=== PATIENT | female | born 1935 | race Caucasian/White ===

== ENCOUNTER 2017-06-13 10:30 | Day surgery (SDC) | payer MEDICARE, OTHER ==
[2017-06-12 13:59] VITALS: BMI 24.2
[~2017-06-13] VITALS: Ht 162.6 cm; Wt 164.0 kg
[2017-06-13] VITALS (9 sets, daily range): BP systolic 128–156; BP diastolic 59–79; PULSE 75–88; RESP 16–29; Ht 162.6 cm; Wt 164.0 kg
--- NOTE | 2017-06-13 04:58 | PREOPHP ---
DATE OF ADMISSION: 06/13/2017 HISTORY OF PRESENT ILLNESS: This 82-year-old patient is admitted for elective cataract surgery of the right eye. The patient has had progressive deterioration in both eyes over the last 1-2 years without prior history of eye disease or injury. PAST MEDICAL HISTORY: The patient does have a history of acute respiratory failure and COPD as well as diabetes mellitus, systemic hypertension with secondary renal disease. MEDICATIONS: Includes Coreg, Synthroid and albuterol. Patient is also on Lexapro and Lasix. ALLERGIES: CIPROFLOXACIN AND PENICILLIN. PHYSICAL EXAMINATION: EYES: On examination, the visual acuity is finger counting in the right eye and 20/100 in the left eye. Slit lamp examination reveals dense posterior subcapsular cataract in the right eye and moderately dense posterior subcapsular cataract in the left eye. Applanation tonometry 16 mmHg in each eye. Examination of the retina is grossly within normal limits, but details are limited due to the advanced cataract. DIAGNOSIS: Cataract right eye. PLAN: Cataract extraction with lens implant, right eye. The risks and alternatives of the surgery have been discussed with the patient as well as the potential for improvement of visual acuity leading to greater ability to perform activities of daily living. The patient understands this and agrees to proceed with surgery. Dictated By: Elias Acevedo MD /[email or web address]/kishore /Document#: [id number]
[~2017-06-13 10:30] MED LIST: BALANCED SALT SOLN 500 ML OPH IRRIG ONE; CYCLOPENTOLATE/PHENYLEPH 2 ML OPH OPER SCH; DICLOFENAC 0.1% 2.5 ML OPH OPER SCH; TOBRAMYCIN 0.3% 5 ML OPH RIGHT EYE SCH; TROPICAMIDE 1% 2 ML OPH OPER SCH
[2017-06-13] MEDS ORDERED: DEXAMETHASONE 4 MG/ML 1 ML INJ ONE (11:17)
[2017-06-13] MEDS ORDERED: CARBACHOL 0.01% 1.5 ML OPH INJ ONE (11:17)
[2017-06-13] MEDS ORDERED: GENTAMICIN 80 MG INJ ONE (11:17)
[2017-06-13] MEDS ORDERED: LIDOCAINE 4% (MPF) 5 ML INJ ONE (11:17)
[2017-06-13] MEDS ORDERED: EPINEPHrine 1 MG INJ ONE (11:18)
[2017-06-13] MEDS ORDERED: CEFAZOLIN 1 GM INJ ONE (11:18)
[2017-06-13] MEDS ORDERED: METOCLOPRAMIDE 10 MG INJ IV PRN (11:30)
[2017-06-13] MEDS ORDERED: FENTAnyl 50 MCG/ML VIAL IV PRN (11:30)
[2017-06-13] MEDS ORDERED: MEPERIDINE 25 MG INJ IV PRN (11:30)
[2017-06-13] MEDS ORDERED: DIPHENHYDRAMINE 50 MG INJ IV PRN (11:30)
[2017-06-13] MEDS ORDERED: ONDANSETRON 4 MG INJ IV PRN (11:30)
[2017-06-13] MEDS ORDERED: LORA1TAB PO (11:58)
[2017-06-13] MEDS ORDERED: CARV3.12 PO (11:59)
[2017-06-13] MEDS ORDERED: DOCU-144 PO (11:59)
[2017-06-13] MEDS ORDERED: CRAN450C PO (11:59)
[2017-06-13] MEDS ORDERED: BISA10SU55 RC (12:00)
[2017-06-13] MEDS ORDERED: SYN75 PO (12:01)
[2017-06-13] MEDS ORDERED: SENN-53 PO (12:01)
[2017-06-13] MEDS ORDERED: ACET-2047 PO (12:02)
[2017-06-13] MEDS ORDERED: HYALURONATE/CHONDROITIN 1ML OPH INJ IO ONE (12:10)
[2017-06-13] MEDS ORDERED: CARBACHOL 0.01% 1.5 ML OPH INJ IO ONE (12:10)
[2017-06-13] MEDS ORDERED: GENTAMICIN 80 MG INJ INJ ONE (12:10)
[2017-06-13] MEDS ORDERED: DEXAMETHASONE 4 MG/ML 1 ML INJ INJ ONE (12:10)
[2017-06-13] MEDS ORDERED: LIDOCAINE 2% (SDV) 5 ML INJ ONE (12:59)
[2017-06-13] MEDS ORDERED: PROPOFOL 20 ML ONE (12:59)
[2017-06-13] MEDS ORDERED: HYALURONATE/CHONDROITIN 1ML OPH INJ ZFS ONE (14:00)
--- NOTE | 2017-06-21 06:51 | OPR ---
DATE OF OPERATION: 06/13/2017 PREOPERATIVE DIAGNOSIS: Mature cataract, right eye. POSTOPERATIVE DIAGNOSIS: Mature cataract, right eye. OPERATION PERFORMED: Cataract extraction with lens implant, right eye. SURGEON: Elias Acevedo MD DOCUMENTATION LEAD: ANESTHESIA: Local standby. ANESTHESIOLOGIST: Nick Mejia MD OPERATION: Phacoemulsification with posterior chamber intraocular lens implant, right eye. PROCEDURE: The patient was brought to the operating room and placed on the table with an IV in place and the patient attached to an post office manager. Oxygen was given via face mask. After some intravenous sedation was administered, local anesthesia was given using Xylocaine 2% with epinephrine, mixed with Marcaine 0.5%. This was given in a lid block and retrobulbar injection. The patient was then prepped and draped in the usual sterile manner. A wire lid speculum was inserted between the lids of the right eye. A Superblade was used to enter the anterior chamber at the corneoscleral limbus at the 10:30 o'clock position. A separate incision was made using a 3.0-mm keratome which entered the corneoscleral junction at the 12 o'clock position. Through this 3- mm opening, an irrigating cystotome was introduced into the anterior chamber. The chamber was filled with Viscoat and an anterior capsulotomy was performed. Balanced salt solution was then used for hydrodissection of the lens. A phacoemulsification handpiece was then brought into the field and introduced into the anterior chamber. The lens nucleus was emulsified using a deep groove and cracking the nucleus into quadrants. Following this, each quadrant was aspirated and emulsified at the pupillary margin. Because of the mature cataract and the hard fragments of lens nucleus during the phacoemulsification, there was a break in the posterior capsule, however, no formed vitreous presented in the anterior chamber or at the lips of the wound, therefore it was decided to proceed with cataract surgery with lens implant After this was completed, the irrigation/aspiration handpiece was brought to the field, introduced into the posterior chamber, and the lens cortical material was removed. When this was completed, additional Viscoat was injected into the anterior and posterior chambers. The 3-mm opening had its internal lips enlarged, and then the posterior chamber intraocular lens measuring 19.5 diopters posterior chamber intraocular lens (Bausch and Lomb model LI61AO) was then injected into the posterior chamber using the lens injector system. After the leading haptic was introduced into the capsular bag and the lens optic was present in the center of the eye, the injector was removed and the trailing haptic was grasped with non-toothed forceps and introduced into the capsular fold superiorly. A Sinskey hook was then used to rotate the intraocular lens so that the lips were oriented in the horizontal meridian. One 10-0 nylon suture was placed across the wound. Prior to tying, the irrigation/aspiration handpiece was reintroduced into the anterior chamber to remove the Viscoat. Miochol was instilled to constrict the pupil, and then the 10-0 nylon suture was tied. The ends were cut short and then the knot was buried. Then, 0.5 mL of dexamethasone and 0.5 mL of Ancef were injected into the sub-Tenon space in the inferior fornix. Ciloxan drops were then placed on the surface of the eye. The speculum was removed and a patch was applied. The patient then left the operating room in satisfactory condition. Dictated By: Elias Acevedo MD /renea/maria r /Document#: [id number]
== END 2017-06-13 15:20 | disposition home or self-care (01) ==
LOC: SDS 10:30
PROVIDERS: ATTEND Ophthalmology
DX: H25.041 Posterior subcapsular polar age-related cataract, right eye (principal); J44.9 Chronic obstructive pulmonary disease, unspecified; I12.9 Hypertensive chronic kidney disease with stage 1 through stage 4 chronic kidney disease, or unspecified chronic kidney disease; N18.9 Chronic kidney disease, unspecified; E11.9 Type 2 diabetes mellitus without complications; Z88.0 Allergy status to penicillin; E03.9 Hypothyroidism, unspecified
CPT/HCPCS: 66984; J0171; J0690; J1100; J1580; V2632

== ENCOUNTER 2017-07-18 05:53 | Day surgery (SDC) | payer MEDICARE, OTHER ==
--- NOTE | 2017-07-17 16:52 | PREOPHP ---
DATE OF ADMISSION: 07/18/2017 HISTORY OF PRESENT ILLNESS: This 82-year-old patient has had decrease of vision in both eyes over the past 1 to 2 years and 1 month ago underwent cataract surgery of the right eye with good visual result. The patient denies prior history of eye disease or injury. PAST MEDICAL HISTORY: The patient's systemic history is positive for a history of acute respiratory failure and COPD, as well as diabetes mellitus, systemic hypertension, and secondary renal disease. CURRENT MEDICATIONS: Coreg, Synthroid, albuterol, Lexapro, and Lasix. ALLERGIES: CIPROFLOXACIN AND PENICILLIN. PHYSICAL EXAMINATION: HEENT: The visual acuity without correction is 20/80 in the right eye and 2100 in the left eye. Slit lamp reveals posterior chamber intraocular lens in appropriate position in the right eye and a posterior subcapsular cataract in the left eye. Applanation tonometry is 18 mmHg. Examination of the retina appears within normal limits. DIAGNOSIS: Cataract left eye. PLAN: Cataract extraction with lens implant left eye. The risks and alternatives for the patient's cataract have been discussed with the patient and patient is eager to proceed with surgery in hopes of achieving better visual acuity leading to greater ability to perform activities of daily living. Dictated By: Elias Acevedo MD /renea/berta /Document#: [id number]
[2017-07-18] VITALS (7 sets, daily range): BP systolic 115–141; BP diastolic 57–85; PULSE 78–86; RESP 18–25; Ht 162.6 cm; Wt 65.0 kg
[~2017-07-18] VITALS: Ht 162.6 cm; Wt 65.0 kg
[~2017-07-18 05:53] MED LIST changes: +ACET-2047 PO; -BALANCED SALT SOLN 500 ML OPH IRRIG ONE; +BISA10SU55 RC; +CARV3.12 PO; +CRAN450C PO; -CYCLOPENTOLATE/PHENYLEPH 2 ML OPH OPER SCH; -DICLOFENAC 0.1% 2.5 ML OPH OPER SCH; +DOCU-144 PO; +LORA1TAB PO; +SENN-53 PO; +SYN75 PO; -TOBRAMYCIN 0.3% 5 ML OPH RIGHT EYE SCH; -TROPICAMIDE 1% 2 ML OPH OPER SCH
[2017-07-18] MEDS ORDERED: EPINEPHrine 1 MG INJ ONE (06:24)
[2017-07-18] MEDS ORDERED: CARBACHOL 0.01% 1.5 ML OPH INJ ONE (06:24)
[2017-07-18] MEDS ORDERED: DEXAMETHASONE 4 MG/ML 1 ML INJ ONE (06:24)
[2017-07-18] MEDS ORDERED: LIDOCAINE 4% (MPF) 5 ML INJ ONE (06:24)
[2017-07-18] MEDS ORDERED: HYALURONATE/CHONDROITIN 1ML OPH INJ ONE (06:24)
[2017-07-18] MEDS ORDERED: GENTAMICIN 80 MG INJ ONE (06:24)
[2017-07-18] MEDS ORDERED: CARV3.12 PO (07:26)
[2017-07-18] MEDS ORDERED: DIFL5DRO RIGHT EYE (07:29)
[2017-07-18] MEDS ORDERED: BROM3DRO RIGHT EYE (07:31)
[2017-07-18] MEDS ORDERED: GENT5DRO28 RIGHT EYE (07:33)
[2017-07-18] MEDS ORDERED: CIPROFLOXACIN 0.3% 2.5 ML OPH ONE (07:41)
[2017-07-18] MEDS: CYCLOPENTOLATE/PHENYLEPH 2 ML OPH LEFT EYE SCH ×3 (08:06→08:24)
[2017-07-18] MEDS: TROPICAMIDE 1% 3ML OPH LEFT EYE SCH ×2 (08:06→08:24)
[2017-07-18] MEDS: DICLOFENAC 0.1% 2.5 ML OPH LEFT EYE SCH ×3 (08:06→08:24)
[2017-07-18] MEDS ORDERED: CARBACHOL 0.01% 1.5 ML OPH INJ IO ONE (08:09)
[2017-07-18] MEDS ORDERED: GENTAMICIN 80 MG INJ INJ ONE (08:09)
[2017-07-18] MEDS ORDERED: HYALURONATE/CHONDROITIN 1ML OPH INJ IO ONE (08:09)
[2017-07-18] MEDS ORDERED: DEXAMETHASONE 4 MG/ML 1 ML INJ INJ ONE (08:09)
[2017-07-18] MEDS ORDERED: CIPROFLOXACIN 0.3% 2.5 ML OPH OPER SCH (08:30)
[2017-07-18] MEDS ORDERED: PROPOFOL 20 ML ONE (08:45)
[2017-07-18] MEDS ORDERED: MEPERIDINE 25 MG INJ IV PRN (09:00)
[2017-07-18] MEDS ORDERED: hydrALAzine 20 MG INJ IV PRN (09:00)
[2017-07-18] MEDS ORDERED: FENTAnyl 50 MCG/ML VIAL IV PRN (09:00)
[2017-07-18] MEDS ORDERED: ONDANSETRON 4 MG INJ IV PRN (09:00)
[2017-07-18] MEDS ORDERED: LABETALOL HCL 20MG INJ IV PRN (09:00)
--- NOTE | 2017-07-18 09:28 | SIPON ---
Date/Time of Note Date/Time of Note DATE: 07/18/17 TIME: 09:27 Operative Report Preoperative Diagnosis cataract os Operation/Procedure Performed cataract surgery os Surgeon: GÓMEZ FLORENTINO MD Anesthesia Type: MAC Estimated Blood Loss: none Transfusion Required: no Specimen: none Grafts/Implants posterior chamber IOL Complications: no GÓMEZ FLORENTINO MD Jul 18, 2017 09:28
--- NOTE | 2017-07-18 09:40 | OPR ---
DATE OF OPERATION: 07/18/2017 PREOPERATIVE DIAGNOSIS: Cataract left eye. POSTOPERATIVE DIAGNOSIS: Cataract left eye. PROCEDURE: Cataract extraction with lens implant, left eye. SURGEON: Elias Acevedo MD ANESTHESIOLOGIST: Roberto Moncada MD ANESTHESIA: Local standby. OPERATION: Phacoemulsification with posterior chamber intraocular lens implant, left eye. PROCEDURE: The patient was brought to the operating room and placed on the table with an IV in place and the patient attached to an slag wheeler. Oxygen was given via face mask. After some intravenous sedation was administered, local anesthesia was given using Xylocaine 2% with epinephrine, mixed with Marcaine 0.5%. This was given in a lid block and retrobulbar injection. The patient was then prepped and draped in the usual sterile manner. A wire lid speculum was inserted between the lids of the left eye. A Superblade was used to enter the anterior chamber at the corneoscleral limbus at the 10:30 o'clock position. A separate incision was made using a 3.0-mm keratome which entered the corneoscleral junction at the 12 o'clock position. Through this 3- mm opening, an irrigating cystotome was introduced into the anterior chamber. The chamber was filled with Viscoat and an anterior capsulotomy was performed. Balanced salt solution was then used for hydrodissection of the lens. A phacoemulsification handpiece was then brought into the field and introduced into the anterior chamber. The lens nucleus was emulsified using a deep groove and cracking the nucleus into quadrants. Following this, each quadrant was aspirated and emulsified at the pupillary margin. After this was completed, the irrigation/aspiration handpiece was brought to the field, introduced into the posterior chamber, and the lens cortical material was removed. When this was completed, additional Viscoat was injected into the anterior and posterior chambers. The 3-mm opening had its internal lips enlarged, and then the posterior chamber intraocular lens measuring 19.5 diopters ([employer] model LI61AO) was then injected into the posterior chamber using the lens injector system. After the leading haptic was introduced into the capsular bag and the lens optic was present in the center of the eye, the injector was removed and the trailing haptic was grasped with non-toothed forceps and introduced into the capsular fold superiorly. A Sinskey hook was then used to rotate the intraocular lens so that the lips were oriented in the horizontal meridian. One 10-0 nylon suture was placed across the wound. Prior to tying, the irrigation/aspiration handpiece was reintroduced into the anterior chamber to remove the Viscoat. Miochol was instilled to constrict the pupil, and then the 10-0 nylon suture was tied. The ends were cut short and then the knot was buried. Then, 0.5 mL of dexamethasone and 0.5 mL of gentamycin were injected into the sub-Tenon space in the inferior fornix. Ciloxan drops were then placed on the surface of the eye. The speculum was removed and a patch was applied. The patient then left the operating room in satisfactory condition. Dictated By: Elias Acevedo MD /renea/javier /Document#: [id number]
== END 2017-07-18 13:21 | disposition home or self-care (01) ==
LOC: SDS 05:53
PROVIDERS: ATTEND Ophthalmology
DX: H25.12 Age-related nuclear cataract, left eye (principal); I10 Essential (primary) hypertension; J44.9 Chronic obstructive pulmonary disease, unspecified
CPT/HCPCS: 66984; J0171; J1100; J1580; V2632